=== PATIENT | female | born 1960 | race Caucasian/White ===

== ENCOUNTER → 2016-12-23 | Outpatient (CLI) | payer OTHER ==
[~2016-12-23] MED LIST: AMARYL2 MG PO; CYCLOBENZAPRINE10 MG PO; EFFEXOR XR150 M1 PO; METFORMIN500 MG PO; METOPROLOL SUCC50 M1 PO; PREDNISONE50 MG PO; TESSALON PERLE100 MG PO; ZOLPIDEM10 MG PO
== END | disposition home or self-care (01) ==
LOC: US 10:49
DX: E01.0 Iodine-deficiency related diffuse (endemic) goiter (principal)

== ENCOUNTER → 2017-01-01 | Outpatient (CLI) | payer OTHER | END | disposition home or self-care (01) | LOC: MAMMO 03:24 | DX: Z12.31 Encounter for screening mammogram for malignant neoplasm of breast (principal); E01.0 Iodine-deficiency related diffuse (endemic) goiter ==

== ENCOUNTER → 2017-02-05 | Day surgery (SDC) | payer OTHER ==
[~2017-02-05] VITALS: Ht 167.6 cm; Wt 122.5 kg
[~2017-02-05] MED LIST changes: +ASPIRIN CHEWABL81 MG PO; +CINNAMON ALPHA1 EACH PO; +LIPITOR10 MG PO; +PRILOSEC20 M1 PO
--- NOTE | ~2017-02-05 | O ---
[place], [place] OPERATIVE NOTE NAME: [facility]ADOR CHAND [facility] [id number] UNIT #: [id number] ROOM: DOCTOR[facility] [birth year] DOS: PROCEDURES: 1. Esophagogastroduodenoscopy and biopsy. 2. Colonoscopy and polypectomy. INDICATIONS: GERD and history of colon polyps. An informed consent was obtained from the patient after the indication of procedures, alternatives and potential complications were explained to her procedure. MEDICATIONS: Sedation was administered by anesthesiology department. ____ for upper endoscopy, Olympus diagnostic adult upper endoscope GIF-180 ____ insertion was to descending duodenum. With the colonoscopy, the scope used was Olympus pediatric colonoscope ____ GIF-180 ____ insertion was to the cecum, which was identified by the ileocecal valve and ____ fold. PROCEDURE: After adequate sedation, the patient was placed in left lateral decubitus position. Upper endoscopy was performed first. Scope was introduced under direct visualization through the upper esophageal sphincter into the esophagus. Esophageal mucosa appeared normal with no ulcerations or strictures. Lower esophageal sphincter was identified at 38 cm from incisors with normal appearing Z-line. The stomach was then intubated. Gastric mucosa inspected. Severe gastritis was seen. No discrete ulcers or active bleeding. A TRACY test was performed from the gastric antrum and body. On retroflex view of the fundus, a small hiatal hernia was identified. The pylorus was intubated easily. The duodenal bulb and descending duodenum were within normal range. The scope was then withdrawn. After that, the stomach was decompressed. We then proceeded with the colonoscopy. Rectal examination showed diminished sphincter tone and external hemorrhoids. Scope was introduced into the rectum and then advanced to the cecum with moderate difficulty due to looping of left colon and adhesions. The prep was suboptimal with small amounts of stool seen throughout the colon. Multiple diverticula were seen throughout the colon consistent with pancolonic diverticular disease in addition to a small ascending colon polyp approximately 5 mm diameter. Polyp was removed with a cold mini snare and recovered. The remaining colon mucosa was within normal range including retroflexed views in the rectum. The scope was then withdrawn after the rectum was decompressed. Patient tolerated procedures well. IMPRESSIONS: 1. Small hiatal hernia. 2. Gastritis, TRACY test performed. 3. Pancolonic diverticular disease. 4. Diminutive ascending colon polyp, removed. PLAN: We will review the TRACY test and the histopathology reports and treat the patient accordingly. The patient was instructed to avoid aspirin and NSAIDs for the next 10 days. She was advised to use fiber supplements on regular basis. [place], [place] OPERATIVE NOTE NAME: SALVADOR CHAND UNIT #: [id number] ROOM: DOCTOR: DARRIAN MENDOZA MD BIRTHDATE: [birth year] DARRIAN MENDOZA MD CM:OPRECORD:OPERATIVE NOTE [id number] ANDRZEJ MENDOZA MD 02/08/17 1718 interface
[2017-02-05 08:07] VITALS: BP 116/62
[2017-02-05 08:45] VITALS: BP 125/61
[2017-02-05 09:00] VITALS: BP 151/67
[2017-02-05 09:15] VITALS: BP 158/72
== END | disposition home or self-care (01) ==
LOC: SDC 02-01 12:30
DX: Z09 Encounter for follow-up examination after completed treatment for conditions other than malignant neoplasm (principal); K63.5 Polyp of colon; K29.70 Gastritis, unspecified, without bleeding; K44.9 Diaphragmatic hernia without obstruction or gangrene; K57.30 Diverticulosis of large intestine without perforation or abscess without bleeding; Z87.19 Personal history of other diseases of the digestive system; I10 Essential (primary) hypertension; J44.9 Chronic obstructive pulmonary disease, unspecified; K21.9 Gastro-esophageal reflux disease without esophagitis; E11.9 Type 2 diabetes mellitus without complications; F32.9 Major depressive disorder, single episode, unspecified; Z90.710 Acquired absence of both cervix and uterus; Z98.890 Other specified postprocedural states; F17.210 Nicotine dependence, cigarettes, uncomplicated

== ENCOUNTER → 2017-12-22 | Outpatient (CLI) | payer OTHER ==
[~2017-12-22] MED LIST changes: +ANAPROX DS550 MG PO; +LISINOPRIL2.5 MG PO; +REXULTI1 MG PO; +ROBAXIN500 M1 PO
--- NOTE | ~2017-12-22 | EKG ---
[place], [place] ELECTROCARDIOGRAM REPORT NAME: SALVADOR CHAND UNIT #: [id number] ROOM: DOCTOR: EPIPHANY DRAFT REPORT BIRTHDATE: [birth year] [facility] Test Date: 2017-12-22 Test Time: 11:40:45 Pat Name: SALVADOR CHAND Department: Room: Gender: F Equipment Service Technician: : 1960 Requested By: MAUREEN CAMARILLO Order Number: [id number] Reading MD: Madi Dacosta MD Measurements Intervals [place] Rate: 80 P: 45 ME: 131 QRS: 16 QRSD: 84 T: 44 QT: 376 QTc: 434 Interpretive Statements Sinus rhythm Abnormal R-wave progression, early transition Electronically Signed On 12-23-2017 6:59:18 PDT by Madi Dacosta MD CM:EKGRPT:ELECTROCARDIOGRAM REPORT [id number] MAUREEN BREAUX DRAFT REPORT MAUREEN CAMARILLO
== END | disposition home or self-care (01) ==
LOC: RAD 10:55
DX: M25.512 Pain in left shoulder (principal); I49.9 Cardiac arrhythmia, unspecified

== ENCOUNTER → 2019-07-26 | Outpatient (CLI) | payer OTHER | END | disposition home or self-care (01) | LOC: MAMMO 07-13 14:30 | DX: Z12.31 Encounter for screening mammogram for malignant neoplasm of breast (principal) ==